=== PATIENT | male | born 1935 | race Caucasian/White ===

== ENCOUNTER 2016-09-05 19:53 | Inpatient (IN) | payer OTHER, MEDICARE ==
[~2016-09-05] VITALS: Ht 170.2 cm; Wt 78.0 kg
[2016-09-05 19:57] VITALS: O2SAT 100
[2016-09-05] MEDS ORDERED: GENTAMICIN 80 MG PREMIX 100 ML ONE (19:58)
[2016-09-05] MEDS ORDERED: ONDANSETRON HCL 4 MG/2 ML VIAL ONE (20:00)
[2016-09-05] MEDS ORDERED: MORPHINE SULFATE 8 MG/ML INJ ONE (20:00)
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
[2016-09-05 20:27] LABS: I-STAT POTASSIUM 3.8 MMOL/L (3.5-4.9)
[2016-09-05 20:30] LABS: AUTOMATED NEUTROPHIL # 14.8 TH/MM3 (1.8-7.7); BASOPHIL # 0.1 TH/MM3 (0-0.2); BASOPHIL % 0.3 % (0.0-2.0); HEMATOCRIT 32.8 % (39.0-51.0); LYMPH % 49.6 % (9.0-44.0); LYMPHOCYTE # 15.4 TH/MM3 (1.0-4.8); MEAN CELL VOLUME 87.6 FL (80.0-100.0); MEAN CORPUSCULAR HEMOGLOBIN 28.9 PG (27.0-34.0); MEAN CORPUSCULAR HGB CONC 32.9 % (32.0-36.0); MONO % 2.7 % (0.0-8.0); NEUT % 47.4 % (16.0-70.0); PLATELET COUNT 166 TH/MM3 (150-450); RED BLOOD COUNT 3.74 MIL/MM3 (4.50-5.90); RED CELL DISTRIBUTION WIDTH 14.7 % (11.6-17.2); WHITE BLOOD COUNT 31.1 TH/MM3 (4.0-11.0)
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
[2016-09-05 20:32] LABS: HEMO FLAGS AUTO DIFF
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
[2016-09-05] MEDS ORDERED: fentaNYL CITRATE 250 MCG/5 ML AMP ONE (20:49)
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
[2016-09-05] MEDS ORDERED: SODIUM CHLOR 0.9% 1000 ML INJ 1,000 ML IV ONE (21:00)
[2016-09-05] MEDS ORDERED: GENTAMICIN/SOD CHL 80 MG/100 ML IV ONE (21:00)
[2016-09-05] MEDS ORDERED: ceFAZolin 2 GM PREMIX 50 ML IV STA (21:11)
[2016-09-05] MEDS ORDERED: DIPHTH/TETANUS/ACEL PERTUSSIS (BOOSTER) 0.5 ML VIAL/PFS IM ONE (21:11)
[2016-09-05] MEDS ORDERED: NITROGLYCERIN-DEXTROSE INJ 250 ML IV SCH (21:15)
[2016-09-05] MEDS ORDERED: ASPIRIN 81 MG CHEW TAB CHEW ONE (21:15)
[2016-09-05] MEDS ORDERED: MORPHINE SULFATE 4 MG/ML INJ IV ONE (21:15)
[2016-09-05] MEDS ORDERED: ONDANSETRON HCL 4 MG/2 ML VIAL IV ONE (21:15)
[2016-09-05] MEDS ORDERED: IOHEXOL 350 MG/ML 10 ML VIAL (for RAD DIAG) IV ONE (21:20)
[2016-09-05 21:23] LABS: APTT (PATIENT) 26.7 SEC (24.3-30.1); INTERNATIONAL NORMALIZED RATIO 1.1 RATIO; PROTHROMBIN TIME - PATIENT 12.1 SEC (9.8-11.6)
[2016-09-05] MEDS ORDERED: HEPARIN SODIUM - IV 10,000 UNITS/10 ML VIAL IV ONE (21:30)
[2016-09-05] MEDS ORDERED: HEPARIN-D5W INJ 250 ML IV SCH (21:30)
[2016-09-05 21:36] LABS: BANDS 2 % (0-6); NEUTROPHIL # MANUAL DIFF 13.1 TH/MM3 (1.8-7.7); POLYS (SEG NEUTROPHILS) 40 % (16-70); WBC DIFF SAMPLE 100
[2016-09-05 21:37] LABS: PLATELET ESTIMATE SMEAR NORMAL (NORMAL); PLATELET MORPHOLOGY NORMAL (NORMAL); SCAN/DIFF FINAL DIFF MANUAL
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
[2016-09-05] MEDS ORDERED: MISCELLANEOUS NURSING INFORMATION XX SCH (21:45)
[2016-09-05] MEDS ORDERED: CHLORHEXIDINE GLUCONATE 2 % 1 PACK (2 CLOTHS) TOP PRN (21:45)
[2016-09-05] MEDS ORDERED: MAGNESIUM OXIDE 400 MG TAB PO PRN (21:45)
[2016-09-05] MEDS ORDERED: DEXTROSE 50% IN WATER 50 ML VIAL(D50) IV PUSH PRN (21:45)
[2016-09-05] MEDS ORDERED: POTASSIUM PHOSPHATE MONOBASIC 500 MG TAB PO/TUBE PRN (21:45)
[2016-09-05] MEDS ORDERED: POTASSIUM CL 40 MEQ/30 ML LIQ UDC PO/TUBE PRN ×2 (21:45)
[2016-09-05] MEDS ORDERED: MAGNESIUM SULFATE INJ 2 GM in SODIUM CHLORIDE 0.9% INJ 96 ML IV PRN (21:45)
[2016-09-05] MEDS ORDERED: RESP: ALBUTEROL 2.5 MG/IPRATROPIUM 0.5 MG NEB (PRN) INH (21:45)
[2016-09-05] MEDS ORDERED: POTASSIUM PHOSPHATE MONOBASIC 500 MG TAB PO PRN (21:45)
[2016-09-05] MEDS ORDERED: SODIUM PHOSPHATE INJ 30 MMOL in SODIUM CHLOR 0.9% 250 ML INJ 240 ML IV PRN (21:45)
[2016-09-05] MEDS ORDERED: POTASSIUM PHOSPHATE INJ 30 MMOL in SODIUM CHLOR 0.9% 250 ML INJ 250 ML IV PRN (21:45)
[2016-09-05] MEDS ORDERED: MAGNESIUM SULFATE INJ 4 GM in SODIUM CHLORIDE 0.9% INJ 92 ML IV PRN (21:45)
[2016-09-05] MEDS ORDERED: POTASSIUM CHLOR 20 MEQ PREMIX 100 ML IV PRN ×2 (21:45)
[2016-09-05] MEDS ORDERED: ONDANSETRON HCL 4 MG/2 ML VIAL IV PRN (21:45)
[2016-09-05] MEDS ORDERED: POTASSIUM CHLOR 40 MEQ PREMIX 100 ML IV PRN ×2 (21:45)
[2016-09-05] MEDS ORDERED: HEPARIN-NS/PF INJ 500 ML ONE (21:57)
[2016-09-05] MEDS ORDERED: MIDAZOLAM HCL 2 MG/2 ML VIAL ONE (21:59)
[2016-09-05] MEDS ORDERED: IOHEXOL 350 MG/ML 100 ML BTL (for Cath Lab) OTHER ONE (22:06)
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
[2016-09-05 22:32] LABS: BICARBONATE 26.3 MEQ/L (21.0-32.0); POTASSIUM 3.5 MEQ/L (3.5-5.1)
[2016-09-05] MEDS ORDERED: HEPARIN SODIUM - IV 10,000 UNITS/10 ML VIAL ONE ×2 (22:40→23:10)
[2016-09-05] MEDS ORDERED: CLOPIDOGREL 300 MG TAB ONE (22:57)
[2016-09-05 23:06] LABS: CALCIUM-PROTEIN CORRECTED 8.1 MG/DL (8.5-10.1)
[2016-09-05] MEDS ORDERED: MISC INFORMATION XX ONE (23:30)
[2016-09-05] MEDS ORDERED: SODIUM CHLORIDE 0.9% FLUSH 5 ML FLUSH IVF PRN (23:30)
[2016-09-05 23:35] VITALS: O2SAT 96
--- NOTE | 2016-09-05 23:43 | MA ---
cc: DELANOPENNY DATE: 09/05/2016 PROCEDURE PERFORMED Coronary angiography, bypass graft angiography including left internal mammary arteriography, balloon angioplasty and tandem stenting of the distal right coronary artery. Complex procedure required right femoral arterial access was subsequent Angio-Seal closure. DESCRIPTION OF PROCEDURE The patient is brought to the cardiac seed laboratory technician under emergency conditions with an inferior STEMI. Using 1% lidocaine for local anesthesia a 6.5 Setswana sheath was easily inserted into the right femoral artery. Left coronary angiography was then completed using a left 4.5 Maria De Jesus catheter, right coronary angiography was performed using a right 4 Maria De Jesus catheter. A multipurpose catheter was used to find a occluded vein graft to the right coronary artery. By his history there had to be at least one other graft which would be a left-sided graft. There were several potential stumps off the aorta but nothing clearly identifiable as a stump but I was confident that there no additional patent grafts. The internal mammary bypass was shot with an VENU catheter. I elected to go ahead and stent the right coronary artery. I avoided doing an LV gram or root shot because of his elevated creatinine and the situation with his hip fracture and wrist fracture. A right 4 Maria De Jesus guiding catheter was used to engage the right coronary artery. His ACT was a little low so heparin boluses were given. At the end of the case it was determined the IV was not functional so an additional 2500 units of heparin was given at the very end of the case but there were no thrombotic complications seen at any time. The right coronary artery was wired with a BMW wire. The 99% focal lesion was dilated with a 2-0 balloon with localized dissection and a long zone of disease. I then placed two overlapping stents, a 2.5 x 26 mm bare metal integrity stent deployed at 8 atmospheres and a second 2.5 x 22 mm stent. On the distal end of this, 22 atmospheres which completely covered the long zone of disease. The overlap of the stents was then dilated with the delivery balloon at 14 atmospheres and on the proximal end of the stent at 10 atmospheres. An outstanding angiographic result was achieved. The patient tolerated the procedure well. Total contrast load was 100 cc. Angiography of the right femoral artery was then obtained via the sheath followed by uncomplicated Angio-Seal closure. The patient tolerated procedure well, surprisingly with his left hip fracture and right wrist fracture. FINDINGS HEMODYNAMICS. 1. Aortic pressure is 125/50 with a mean of 79. 2. Coronary angiography. The left main coronary artery has distal 85% stenosis. It bifurcates into the LAD and circumflex vessels. The LAD is severely diseased. There is ostial 95% disease and 90% mid disease with competitive flow from the bypass graft. 3. The circumflex artery is somewhat diminutive in size. There is a small obtuse marginal branch with diffuse 90% disease. An AV groove circumflex with a small posterolateral has more than one 95% stenosis. 4. The right coronary artery is dominant. This vessel demonstrates mild diffuse disease with about 30% stenosis distally but then right at the bifurcation there is a 99% distal stenosis with a long zone of 50 to 70% disease, contiguous with this going into a long posterolateral branch. BYPASS GRAFTS The left internal mammary bypass graft is widely patent to the mid-LAD. It provides antegrade and retrograde flow. There is a small disease diagonal given off proximally. There is a stump at the vein graft to the right coronary artery. The remaining stump was not identified but there were no other patent grafts found. RESULTS OF INTERVENTION Following stenting of the distal right coronary artery and posterolateral branches 0% residual stenosis had been achieved with normal flow. CONCLUSION 1. Normal aortic pressure. 2. Severe three-vessel coronary artery disease. 3. Only one patent graft which is a left internal mammary graft to the LAD. 4. Critically diseased right coronary artery now successfully stented. This was the infarct-related vessel. RECOMMENDATIONS Heparin is now turned off. The groin has been closed with Angio-Seal. The patient needs to continue on 81 mg aspirin and 75 mg of clopidogrel. MD JONATHAN Rodriguez/YURY /11:19 PM /11:29 PM
[2016-09-06] VITALS (12 sets, daily range): BP systolic 96–121; BP diastolic 50–56; PULSE 61–82; RESP 13–23; TEMP 97.1–99.1; O2SAT 65–100
[2016-09-06] MEDS ORDERED: HYDROmorphone HCL PF 1 MG/ML VIAL IV PRN (00:15)
[2016-09-06] MEDS: HYDROmorphone HCL PF 1 MG/ML VIAL IV PRN ×3 (00:37→16:12)
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
[2016-09-06] MEDS: INSULIN NovoLIN REGULAR SUPPLEMENTAL SCALE SQ SCH ×3 (02:22→18:00)
[2016-09-06] MEDS: SODIUM CHLOR 0.9% 1000 ML INJ 1,000 ML IV SCH ×2 (02:22→09:22)
[2016-09-06] MEDS ORDERED: LACTATED RINGER'S 1000 ML INJ 500 ML IV SCH (03:15)
[2016-09-06] MEDS ORDERED: HEPARIN SODIUM - IV 10,000 UNITS/10 ML VIAL IV PRN ×2 (03:30)
[2016-09-06 03:32] LABS: AUTOMATED NEUTROPHIL # 9.9 TH/MM3 (1.8-7.7); BASOPHIL # 0.1 TH/MM3 (0-0.2); BASOPHIL % 0.5 % (0.0-2.0); HEMATOCRIT 22.8 % (39.0-51.0); LYMPH % 53.1 % (9.0-44.0); LYMPHOCYTE # 12.1 TH/MM3 (1.0-4.8); MEAN CELL VOLUME 88.6 FL (80.0-100.0); MEAN CORPUSCULAR HEMOGLOBIN 29.3 PG (27.0-34.0); MEAN CORPUSCULAR HGB CONC 33.1 % (32.0-36.0); MONO % 2.8 % (0.0-8.0); NEUT % 43.6 % (16.0-70.0); PLATELET COUNT 126 TH/MM3 (150-450); RED BLOOD COUNT 2.57 MIL/MM3 (4.50-5.90); RED CELL DISTRIBUTION WIDTH 14.6 % (11.6-17.2); WHITE BLOOD COUNT 22.7 TH/MM3 (4.0-11.0)
[2016-09-06 03:35] LABS: HEMO FLAGS AUTO DIFF
[2016-09-06 03:44] LABS: APTT (PATIENT) 38.4 SEC (24.3-30.1)
[2016-09-06 03:50] LABS: BICARBONATE 26.9 MEQ/L (21.0-32.0); POTASSIUM 3.7 MEQ/L (3.5-5.1)
[2016-09-06 04:18] LABS: BANDS 4 % (0-6); NEUTROPHIL # MANUAL DIFF 10.7 TH/MM3 (1.8-7.7); POLYS (SEG NEUTROPHILS) 43 % (16-70); SCAN/DIFF FINAL DIFF MANUAL; WBC DIFF SAMPLE 100
[2016-09-06 04:20] LABS: CKMB 16.9 NG/ML (0.5-3.6); PLATELET ESTIMATE SMEAR LOW (NORMAL); PLATELET MORPHOLOGY NORMAL (NORMAL); SMUDGE CELLS PRESENT PRESENT
[2016-09-06] MEDS ORDERED: ceFAZolin 2 GM PREMIX 50 ML ONE (08:13)
[2016-09-06] MEDS ORDERED: GENTAMICIN SULFATE 80 MG/2 ML VIAL ONE (08:14)
[2016-09-06] MEDS ORDERED: BUPIVACAINE/EPINEPHRINE 0.25% PF 30 ML VIAL ONE (08:14)
[2016-09-06] MEDS: DOCUSATE SODIUM 50 MG/SENNA 8.6 MG TAB PO SCH ×2 (09:00→23:44)
[2016-09-06] MEDS: ASPIRIN 81 MG CHEW TAB PO SCH (09:00)
[2016-09-06] MEDS: METOPROLOL TARTRATE 25 MG TAB PO SCH ×2 (09:00→18:36)
[2016-09-06] MEDS: CLOPIDOGREL 75 MG TAB PO SCH (09:00)
[2016-09-06] MEDS: SODIUM CHLORIDE 0.9% FLUSH 5 ML FLUSH IVF SCH ×3 (09:00→23:43)
[2016-09-06] MEDS: ATORVASTATIN 40 MG TAB PO SCH (09:00)
[2016-09-06] MEDS ORDERED: PANTOPRAZOLE SODIUM 40 MG VIAL IV SCH (09:00)
[2016-09-06] MEDS ORDERED: VASOPRESSIN INJ 20 UNITS/ML VIAL ONE (09:04)
[2016-09-06] MEDS ORDERED: GENTAMICIN SULFATE 80 MG/2 ML VIAL IV ONE (09:25)
[2016-09-06] MEDS ORDERED: BACITRACIN TOP OINT 15 GM TUBE ONE (10:54)
[2016-09-06] MEDS ORDERED: SUGAMMADEX SODIUM 200 MG/2 ML VIAL IV PUSH ONE ×2 (11:10)
--- NOTE | 2016-09-06 11:12 | PD.OP ---
cc: Mainor Reinoso MD Operative Report Date of Surgery: Sep 06, 2016 Preoperative Diagnosis: Open right distal radius fracture, closed left hip intertrochanteric fracture Postoperative Diagnosis: Procedure: Left hip reduction and intramedullary nail fixation Irrigation debridement of open right distal radius fracture Open reduction internal fixation of comminuted intra-articular right distal radius fracture Anesthesia: Gen. Surgeon: Mainor Reinoso Product Test Specialist(s): JOSE GUADALUPE Bergman PA-C The surgical procedure was assisted by my physician customer marketing assistant. My P.A. presence was necessary throughout this case for the manipulation and positioning of the surgical extremity. My P.A. was assisting me throughout the duration of this procedure. The skill set of a physician customer marketing assistant was medically necessary to complete this procedure. During the surgical case the senior technical architect was working at the back table and the physician customer marketing assistant was directly assisting me. Operation and Findings: Implants used: [11]mm Synthes TFNA intermediate 130 troch nail, Synthes distal radius plate Plan of activity: Weight-bear as tolerated left leg, nonweightbearing right wrist Patient was seen and evaluated preoperatively. The patient has significant hip pain from left intertrochanteric hip fracture and an open right distal radius fracture. The risk and benefits of surgery were discussed in depth with the patient to include bleeding infection nonunion malunion and need for hip replacement painful hardware as well as medical competitions including but not stroke heart attack and . Informed consent was obtained. Operative site was marked. Patient was brought to the operating room and placed on fracture table. IV sedation was administered by anesthesiologist. Timeout procedure was performed. Hip and leg were prepped with alcohol followed by DuraPrep and draped in the usual sterile fashion. IV antibiotics were given prior to incision. Procedure began with reduction of fracture. Traction was applied. The leg was manipulated to achieve reduction. Excellent reduction was achieved. Fluoroscopy was used to confirm reduction. A three inch incision was made proximal to the trochanter. Subcutaneous tissue was dissected bluntly. Guidepin was placed at the tip of the trochanter and advanced into the femoral canal. Fluoroscopy confirmed appropriate guidepin placement. A opening reamer was placed over the guidepin. The Synthes TFNA nail was attached to the insertion handle. Nail was now placed through the tip of the trochanter into the femoral canal. Fluoroscopy confirmed appropriate nail placement. A second incision was made over the lateral thigh. Cannulas were placed through the insertion handle down to the femur. Guidepin was now placed through the femoral nail into the center of the femoral head. Fluoroscopy confirmed appropriate guidepin placement. Screw length was measured. Cannulated drill was placed over the guidepin. Appropriate length lag screw was now placed. Traction was released and compression was applied. The set screw was now tightened in dynamic mode. Using the insertion handle as a guide a distal interlocking screw was drilled and placed. Final fluoroscopy revealed well aligned fracture with well-placed hardware. Incision was closed with 3-0 Vicryl and moon. Sterile dressings were applied. Patient was now repositioned. Right arm was prepped with alcohol followed by Hibiclens and draped in usual sterile fashion. A standard volar approach to the distal radius was utilized. The incision incorporated the 1 cm open laceration. A 3 inch incision was made over the FCR tendon. Tendon sheath was opened. Pronator quadratus was elevated up. The fracture site was now visualized. Next attention was turned to irrigation and debridement of fracture. There were several small bone fragments which were removed. Curettes were used to debride the edges of the bone. Soft tissue and bone were thoroughly irrigated with sterile saline. Overall the wound is very clean. Next attention was turned to fracture reduction. The fracture did have intra- articular extension. The fracture was comminuted and displaced completely. Traction was applied. The articular surface was reduced. Fracture fragments were manipulated to achieve excellent reduction. K wires were used to hold provisional fixation. Fluoroscopy confirmed appropriate alignment of fracture. A Synthes 2 column variable angle distal radius plate was selected. Plate was provisionally fixed to bone with K wires. 2.7 and 2.4 cortical screws were used to compress plate to bone. Fluoroscopy confirmed appropriate alignment of fracture with well-placed hardware. Multiple 2.4 locking screws were now placed distally. Screws were predrilled and measured for appropriate length. 2 additional screws were placed into the shaft. K wires were removed. Final fluoroscopy revealed excellent of fracture with well-placed hardware. The wound was thoroughly irrigated with sterile saline. Subcutaneous tissue was closed with 3-0 PDS and skin was closed with 3-0 nylon. Sterile dressings were applied with Xeroform, 4 x 4, soft roll, and a well padded volar splint. Patient was awakened and transferred to recovery room in stable condition Mainor Reinoso MD Sep 06, 2016 11:12
[2016-09-06] MEDS ORDERED: SODIUM CHLORIDE 0.9% FLUSH 5 ML FLUSH IVF PRN (11:15)
[2016-09-06] MEDS ORDERED: ONDANSETRON HCL 4 MG/2 ML VIAL IVP PRN (11:15)
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
[2016-09-06] MEDS ORDERED: fentaNYL CITRATE 250 MCG/5 ML AMP ONE (11:49)
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
[2016-09-06] MEDS ORDERED: PHENYLEPH/NS 1000 MCG/10 ML SYR IV ONE (12:00)
[2016-09-06] MEDS ORDERED: LACTATED RINGER'S 1000 ML INJ 1,000 ML IV ONE (12:00)
[2016-09-06] MEDS ORDERED: PROPOFOL 200 MG/20 ML AMP IV ONE (12:00)
[2016-09-06] MEDS ORDERED: ONDANSETRON HCL 4 MG/2 ML VIAL IV PUSH ONE (12:00)
[2016-09-06] MEDS ORDERED: PHENYLEPHRINE HCL 10 MG/ML VIAL IV ONE (12:00)
[2016-09-06] MEDS ORDERED: ERGOCALCIFEROL (VIT D2) 50,000 UNIT CAP PO ONE (13:00)
[2016-09-06 13:32] LABS: HEMATOCRIT 30.3 % (39.0-51.0); REVIEW FLAG FINAL
[2016-09-06] MEDS: ACETAMINOPHEN/HYDROcodone 325 MG/7.5 MG TAB PO PRN ×2 (13:49→17:32)
--- NOTE | 2016-09-06 14:49 | RADRPT ---
EXAM DATE/TIME: 09/06/2016 10:03 [facility] COMPARISON: No previous studies available for comparison. INDICATIONS : ORIF right wrist. MEDICAL HISTORY : None. SURGICAL HISTORY : None. ENCOUNTER: Subsequent ACUITY: 2 days PAIN SCORE: Non-responsive. LOCATION: Right wrist. FINDINGS: There are postsurgical changes with operative reduction and internal fixation of the previously seen fracture. The alignment is anatomic. CONCLUSION: Postsurgical changes as above. Christiano Mendez MD on September 06, 2016 at 14:47 Board Certified Radiologist. This report was verified electronically.
--- NOTE | 2016-09-06 14:49 | RADRPT ---
EXAM DATE/TIME: 09/06/2016 10:03 [facility] COMPARISON: No previous studies available for comparison. INDICATIONS : ORIF left hip troch nail. MEDICAL HISTORY : None. SURGICAL HISTORY : None. ENCOUNTER: Subsequent ACUITY: 2 days PAIN SCORE: Non-responsive. LOCATION: Left hip. FINDINGS: There are postsurgical changes with operative reduction and internal fixation of the previously seen fracture. The alignment is anatomic. CONCLUSION: Postsurgical changes as above. Christiano Mendez MD on September 06, 2016 at 14:47 Board Certified Radiologist. This report was verified electronically.
[2016-09-06 16:07] LABS: HEMATOCRIT 21.6 % (39.0-51.0)
[2016-09-06 16:09] LABS: REVIEW FLAG FINAL
[2016-09-06] MEDS ORDERED: SODIUM CHLOR 0.9% 250 ML INJ 250 ML IV ONE (16:45)
[2016-09-06] MEDS ORDERED: SODIUM CHLORID 0.9% 500 ML INJ 500 ML IV SCH (16:45)
[2016-09-06] MEDS ORDERED: METOPROLOL TARTRATE 5 MG/5 ML VIAL ONE (17:59)
[2016-09-06] MEDS ORDERED: METOPROLOL TARTRATE 5 MG/5 ML VIAL IV PUSH STA (18:03)
[2016-09-06 19:34] LABS: BICARBONATE 26.6 MEQ/L (21.0-32.0); POTASSIUM 3.5 MEQ/L (3.5-5.1)
[2016-09-06 20:01] LABS: CALCIUM-PROTEIN CORRECTED 7.7 MG/DL (8.5-10.1)
--- NOTE | 2016-09-06 21:02 | RADRPT ---
EXAM DATE/TIME: 09/06/2016 20:48 [facility] COMPARISON: No previous studies available for comparison. INDICATIONS : Altered mental status. RADIATION DOSE: 39.86 CTDIvol (mGy) MEDICAL HISTORY : Diabetes mellitus type 2. SURGICAL HISTORY : None. ENCOUNTER: Initial ACUITY: 1 day PAIN SCALE: Non-responsive LOCATION: cranial TECHNIQUE: Multiple contiguous axial images were obtained of the head. Using automated exposure control and adj ustment of the mA and/or kV according to patient size, radiation dose was kept as low as reasonably a chievable to obtain optimal diagnostic quality images. FINDINGS: Increased low attenuation fluid seen in the bilateral subdural spaces along both convexities, each si de measuring about 7 mm. These would be compatible with enlarging cystic hygromas. I don't clearly se e any acute blood products. There is no midline shift. No mass lesions seen. No evidence of an acute ischemic event. CONCLUSION: Enlarging bilateral cystic hygromas/nonacute subdural hematomas. No acute blood products seen. No mid line shift. Jeevan Cox MD on September 06, 2016 at 20:59 Board Certified Radiologist. This report was verified electronically.
--- NOTE | 2016-09-06 21:07 | EKG ---
Date Performed: 09/05/2016 Time Performed: 20:10:37 PTAGE: 89 years EKG: Sinus rhythm WITH FIRST DEGREE AV BLOCK MARKED RIGHT AXIS DEVIATION RIGHT BUNDLE BRANCH BLOCK MARKED ST ELEVATION , CONSIDER INFERIOR INJURY ACUTE HI INTERPRETATION BASED ON A DEFAULT AGE OF 38 YEARS NO PREVIOUS TRACING DOCTOR: Nolan Felix Interpretating Date/Time 09/06/2016 21:02:56
[2016-09-06 22:04] LABS: HEMATOCRIT 29.5 % (39.0-51.0); REVIEW FLAG FINAL
[2016-09-06] MEDS ORDERED: SODIUM CHLOR 0.9% 1000 ML INJ 1,000 ML IV ONE (23:15)
[2016-09-07] VITALS (13 sets, daily range): BP systolic 100–160; BP diastolic 52–89; PULSE 62–97; RESP 12–24; TEMP 97–99.4; O2SAT 96–98
[2016-09-07] MEDS: HYDROmorphone HCL PF 1 MG/ML VIAL IV PRN (04:03)
[2016-09-07 04:05] LABS: HEMATOCRIT 30.6 % (39.0-51.0); MEAN CELL VOLUME 85.3 FL (80.0-100.0); MEAN CORPUSCULAR HEMOGLOBIN 28.5 PG (27.0-34.0); MEAN CORPUSCULAR HGB CONC 33.4 % (32.0-36.0); PLATELET COUNT 105 TH/MM3 (150-450); RED BLOOD COUNT 3.59 MIL/MM3 (4.50-5.90); RED CELL DISTRIBUTION WIDTH 18.2 % (11.6-17.2); REVIEW FLAG FINAL
[2016-09-07] MEDS: CHLORHEXIDINE GLUCONATE 2 % 1 PACK (2 CLOTHS) TOP SCH ×3 (04:08→04:16)
[2016-09-07 04:32] LABS: POTASSIUM 3.6 MEQ/L (3.5-5.1)
[2016-09-07 04:49] LABS: CALCIUM-PROTEIN CORRECTED 7.4 MG/DL (8.5-10.1)
[2016-09-07] MEDS: MORPHINE SULFATE 4 MG/ML INJ IV PUSH PRN ×2 (05:06→18:44)
[2016-09-07] MEDS ORDERED: LORazepam 2 MG/ML VIAL IV SCH (05:15)
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
[2016-09-07] MEDS: INSULIN NovoLIN REGULAR SUPPLEMENTAL SCALE SQ SCH ×4 (06:00→17:08)
[2016-09-07] MEDS: CLOPIDOGREL 75 MG TAB PO SCH (08:02)
[2016-09-07] MEDS: ASPIRIN 81 MG CHEW TAB PO SCH (08:02)
[2016-09-07] MEDS: ATORVASTATIN 40 MG TAB PO SCH (08:02)
[2016-09-07] MEDS: METOPROLOL TARTRATE 25 MG TAB PO SCH ×2 (08:02→20:44)
[2016-09-07] MEDS: DOCUSATE SODIUM 50 MG/SENNA 8.6 MG TAB PO SCH ×2 (08:02→20:43)
[2016-09-07] MEDS: CHOLECALCIFEROL (VIT D3) 5000 UNIT CAP PO SCH (08:02)
[2016-09-07] MEDS ORDERED: PILL SPLITTER OTHER PRN (08:45)
--- NOTE | 2016-09-07 08:59 | PD.ORT.PN ---
Subjective Subjective Remarks Sedated with pain controlled, difficult to arouse Objective Vitals Vital Signs Date Time Temp Pulse Resp B/P Pulse Ox O2 Delivery O2 Flow Rate FiO2 09/07/16 06:00 68 09/07/16 04:00 93 09/07/16 04:00 98.9 93 22 160/89 97 09/07/16 02:00 68 09/07/16 00:00 66 09/07/16 00:00 99.1 66 13 100/54 97 09/06/16 22:00 68 09/06/16 21:15 98 Nasal Cannula 3.00 09/06/16 20:00 98.3 68 16 96/50 97 09/06/16 20:00 68 09/06/16 19:00 91 Nasal Cannula 3.00 09/06/16 18:00 76 09/06/16 16:00 94 Nasal Cannula 2.00 09/06/16 16:00 99.1 82 13 97/54 94 09/06/16 16:00 68 09/06/16 14:00 97.1 68 23 121/56 100 09/06/16 14:00 68 09/06/16 12:00 68 09/06/16 12:00 71 16 120/59 97 Nasal Cannula 4 09/06/16 11:50 68 16 116/55 99 Nasal Cannula 4 09/06/16 11:40 98.8 84 16 108/45 96 Nasal Cannula 4 I/O 09/06/16 09/06/16 09/06/16 09/07/16 09/07/16 09/07/16 07:00 15:00 23:00 07:00 15:00 23:00 Intake Total 1487 ml 1404 ml 909 ml 1699 ml Output Total 350 ml 600 ml 150 ml 250 ml Balance 1137 ml 804 ml 759 ml 1449 ml Intake IV Total 987 ml 404 ml 659 ml 1699 ml Packed Cells 500 ml 250 ml Other 1000 ml Output Urine Total 350 ml 300 ml 150 ml 250 ml Estimated Blood Loss 100 ml Other 200 ml Result Diagram: 09/07/168 09/07/16 0348 Imaging Last 24 hours Impressions Chest X-Ray 09/07/16 0600 Signed Impressions: Service Date/Time: Wednesday, September 07, 2016 04:20 - CONCLUSION: No acute cardiopulmonary disease. Areli Weaver MD Objective Remarks Right upper extremity no laxity of shoulder. Splint intact over distal radius. Clean dry and intact. Distally good capillary refills Left upper extremity: No laxity or obvious deformities. Capillary refills Right lower extremity: No laxity or obvious deformities. Good distal pulses and capillary refills Left lower extremity: Clean dry dressings intact over hip. Moderate swelling and ecchymosis. Dressings intact over knee. No obvious deformities or laxity of knee or ankle. Distally intact distal pulses and capillary refills Assessment & Plan Assessment and Plan Right open distal radius fracture POD 1 with irrigation debridement and ORIF Left intertrochanteric femur fracture status post intramedullary angelita fixation POD 1 Maintain splint right upper extremity was nonweightbearing to wrist Daily dressing changes left lower extremity beginning POD 2 with Xeroform and Primapore over incision sites and bacitracin over anterior knee Lovenox SCDs Incentive spirometry once patient is able Discharge planning to rehabilitation Follow-up with Dr. Reinoso or MARYELLEN in 2 weeks HARSHA ROSE PA-C Sep 07, 2016 08:59
[2016-09-07] MEDS: SODIUM CHLORIDE 0.9% FLUSH 5 ML FLUSH IVF SCH ×4 (09:00→20:44)
[2016-09-07] MEDS: FAMOTIDINE 20 MG TAB PO SCH ×2 (09:00→20:43)
--- NOTE | 2016-09-07 09:05 | EC ---
Study Study Date:09/06/2016 STUDY CONCLUSIONS SUMMARY - Left ventricle: The cavity size was normal. Wall thickness was increased in a pattern of moderate LVH. Systolic function was at the lower limits of normal. The estimated ejection fraction was in the range of 50% to 55%. Although no diagnostic regional wall motion abnormality was identified, this possibility cannot be completely excluded on the basis of this study. - Ventricular septum: The outflow septum had a sigmoid appearance. - Aortic valve: Mildly calcified annulus. Probably trileaflet. - Pulmonary arteries: PA peak pressure: 48mm Hg (S). If LV function is below 40, please consider prescribing an ACEI or ARB or document rationale for non-use. PROCEDURE DATA STUDY STATUS: Elective. Procedure: Transthoracic echocardiography. Image quality was good. Scanning was performed from the parasternal, apical, and subcostal acoustic windows. Study completion: The patient tolerated the procedure well. Transthoracic echocardiography. M-mode, complete 2D, complete spectral Doppler, and color Doppler. Patient status: Inpatient. CARDIAC ANATOMY LEFT VENTRICLE: The cavity size was normal. Wall thickness was increased in a pattern of moderate LVH. Systolic function was at the lower limits of normal. The estimated ejection fraction was in the range of 50% to 55%. Although no diagnostic regional wall motion abnormality was identified, this possibility cannot be completely excluded on the basis of this study. AORTIC VALVE: Mildly calcified annulus. Probably trileaflet. Doppler: There was no stenosis. No significant regurgitation. MITRAL VALVE: The valve appears to be grossly normal. Doppler: There was no evidence for stenosis. Trace regurgitation. LEFT ATRIUM: The atrium was normal in size. RIGHT VENTRICLE: The cavity size was normal. Systolic function was normal. VENTRICULAR SEPTUM: The outflow septum had a sigmoid appearance. PULMONIC VALVE: Not well visualized. Doppler: No significant regurgitation. TRICUSPID VALVE: The valve appears to be grossly normal. Doppler: There was no evidence for stenosis. Trace regurgitation. BASIC MEASUREMENTS ADULT NORMAL Left ventricle LV internal dimension, ED, chordal level, *34 mm 43-52 PLAX LV internal dimension, ES, chordal level, 27 mm 23-38 PLAX Fractional shortening, chordal level, PLAX *21 % >29 LV posterior wall thickness, ED 14.3 mm IVS/LVPW ratio, ED 1.28 <1.3 Ventricular septum Septal thickness, ED 18.3 mm Aortic valve Leaflet separation 19 mm 15-26 Right ventricle RV internal dimension, ED, PLAX 28 mm 19-38 BASIC MEASUREMENTS ADULT NORMAL Aortic valve Leaflet separation 19 mm 15-26 Aorta Root diameter, ED 30 mm 20-37 Left atrium Anterior-posterior dimension, ES 36 mm 19-40 LA/aortic root ratio 1.2 DOPPLER MEASUREMENTS ADULT NORMAL Main pulmonary artery Pressure, S *48 mm Hg =30 Tricuspid valve Regurgitant peak velocity 308 cm/s Peak RV-RA gradient, S 38 mm Hg Maximal regurgitant velocity 308 cm/s Systemic veins Estimated CVP 10 mm Hg Right ventricle RV pressure, S *48 mm Hg <30 LEGEND: Mean values are shown as u=mean value. Asterisk (*) mooney values outside specified normal range. Prepared and signed by Eze Stockton-[id number]
[2016-09-07] MEDS: CALCIUM CARBONATE 500 MG CHEWABLE TAB CHEW SCH ×2 (09:19→20:43)
[2016-09-07] MEDS: ACETAMINOPHEN/HYDROcodone 325 MG/7.5 MG TAB PO PRN ×2 (10:30→20:44)
[2016-09-07] MEDS: ENOXAPARIN SODIUM 30 MG/0.3 ML SYRINGE SQ SCH (11:34)
[2016-09-07] MEDS: FUROSEMIDE 20 MG TAB PO SCH (11:38)
[2016-09-07] MEDS ORDERED: MAGNESIUM SULFATE INJ 2 GM in SODIUM CHLORIDE 0.9% INJ 96 ML IV PRN (15:45)
[2016-09-07 16:45] LABS: BICARBONATE 25.3 MEQ/L (21.0-32.0); MAGNESIUM 1.4 MG/DL (1.5-2.5); POTASSIUM 3.6 MEQ/L (3.5-5.1)
[2016-09-07] MEDS: POTASSIUM CHLORIDE 20 MEQ CONTROLLED RELEASE TAB PO PRN (16:54)
[2016-09-07 16:58] LABS: CALCIUM-PROTEIN CORRECTED 7.8 MG/DL (8.5-10.1)
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
--- NOTE | 2016-09-07 18:13 | PD.CARD.PN ---
Subjective Subjective Remarks Brief chest pain last night. EKG shows ST's did not re-elevate Objective Medications Current Medications Medications (Trade) Dose Ordered Sig/Mary Alice Route Start Time Stop Time Status Last Admin (D50w (Vial) Inj) 25 ml UNSCH PRN IV PUSH 09/05/16 21:45 (NovoLIN R SUPPLEMENTAL SCALE) 1 Q6HR SQ 09/06/16 00:00 09/07/16 11:35 (Zofran Inj) 4 mg Q6H PRN IV 09/05/16 21:45 09/06/16 17:39 (Sanam-Colace) 2 tab BID PO 09/06/16 09:00 09/07/16 08:02 Miscellaneous Information 1 Q361D XX 09/05/16 21:45 (Chlorhexidine 2% Cloth) 3 pack Taper DAILY@04 TOP 09/06/16 04:00 09/02/17 03:59 09/07/16 04:16 (Chlorhexidine 2% Cloth) 3 pack UNSCH PRN TOP 09/05/16 21:45 (NS Flush) 2 ml UNSCH PRN IVF 09/05/16 23:30 (NS Flush) 2 ml BID IVF 09/06/16 09:00 09/07/16 09:00 (Aspirin Chew) 81 mg DAILY PO 09/06/16 09:00 09/07/16 08:02 (Plavix) 75 mg DAILY PO 09/06/16 09:00 09/07/16 08:02 (Lipitor) 40 mg DAILY PO 09/06/16 09:00 09/07/16 08:02 (NS Flush) 2 ml UNSCH PRN IVF 09/06/16 11:15 (NS Flush) 2 ml BID IVF 09/06/16 21:00 09/07/16 09:00 (Lovenox Inj) 30 mg Q24H SQ 09/07/16 11:30 09/07/16 11:34 (Zofran Inj) 4 mg Q4H PRN IVP 09/06/16 11:15 ([place] 7.5-325 Mg) 1 tab Q3H PRN PO 09/06/16 11:15 09/07/16 10:30 (Morphine Inj) 3 mg Q3H PRN IV PUSH 09/06/16 11:15 09/07/16 05:06 (Vitamin D3) 5,000 units DAILY PO 09/07/16 09:00 09/07/16 08:02 (Pepcid) 10 mg BID PO 09/07/16 09:00 09/07/16 09:00 (Tums Chew) 500 mg Q12HR CHEW 09/07/16 09:00 09/07/16 09:19 (Pill Splitter) 1 ea UNSCH PRN OTHER 09/07/16 08:45 (Lasix) 20 mg DAILY PO 09/07/16 12:00 09/07/16 11:38 Metoprolol Tartrate 25 mg 25 mg BID PO 09/07/16 21:00 (Magnesium Sulfate Inj/NS Inj) 100 ml @ 50 mls/hr UNSCH PRN IV 09/07/16 15:45 09/07/16 17:07 (KCl) 40 meq UNSCH PRN PO 09/07/16 15:45 09/07/16 16:54 Vital Signs / I&O Vital Signs Date Time Temp Pulse Resp B/P Pulse Ox O2 Delivery O2 Flow Rate FiO2 09/07/16 18:00 77 09/07/16 16:00 97.0 62 12 106/52 96 09/07/16 16:00 62 09/07/16 14:00 90 09/07/16 12:00 98 Nasal Cannula 2.00 09/07/16 12:00 99.4 72 24 107/53 98 09/07/16 12:00 72 09/07/16 10:00 69 09/07/16 08:00 66 09/07/16 08:00 98.4 66 18 113/53 98 09/07/16 07:00 97 Nasal Cannula 3.00 09/07/16 06:00 68 09/07/16 04:00 93 09/07/16 04:00 98.9 93 22 160/89 97 09/07/16 02:00 68 09/07/16 00:00 66 09/07/16 00:00 99.1 66 13 100/54 97 09/06/16 22:00 68 09/06/16 21:15 98 Nasal Cannula 3.00 09/06/16 20:00 98.3 68 16 96/50 97 09/06/16 20:00 68 09/06/16 19:00 91 Nasal Cannula 3.00 I/O 09/06/16 09/06/16 09/06/16 09/07/16 09/07/16 09/07/16 07:00 15:00 23:00 07:00 15:00 23:00 Intake Total 1487 ml 1404 ml 909 ml 1699 ml 1401 ml Output Total 350 ml 600 ml 150 ml 250 ml 200 ml Balance 1137 ml 804 ml 759 ml 1449 ml 1201 ml Intake Oral 525 ml IV Total 987 ml 404 ml 659 ml 1699 ml 551 ml Packed Cells 500 ml 250 ml 325 ml Other 1000 ml Output Urine Total 350 ml 300 ml 150 ml 250 ml 200 ml Estimated Blood Loss 100 ml Other 200 ml Physical Exam Alert Chest clear anteriorly CV S1S2 RRR Abd soft Ext Right groin no hematoma. Pulses OK Laboratory Laboratory Tests Test 09/06/16 09/06/16 09/07/16 09/07/16 18:57 21:50 03:48 15:49 Sodium Level 141 MEQ/L 142 MEQ/L 143 MEQ/L Potassium Level 3.5 MEQ/L 3.6 MEQ/L 3.6 MEQ/L Chloride Level 106 MEQ/L 107 MEQ/L 109 MEQ/L Carbon Dioxide Level 26.6 MEQ/L 24.0 MEQ/L 25.3 MEQ/L Anion Gap 8 MEQ/L 11 MEQ/L 9 MEQ/L Blood Urea Nitrogen 30 MG/DL 32 MG/DL 38 MG/DL Creatinine 2.05 MG/DL 2.18 MG/DL 2.15 MG/DL Estimat Glomerular Filtration 31 ML/MIN 29 ML/MIN 30 ML/MIN Rate Random Glucose 135 MG/DL 130 MG/DL 106 MG/DL Calcium Level 6.8 MG/DL 6.5 MG/DL 6.7 MG/DL Protein Corrected Calcium 7.7 MG/DL 7.4 MG/DL 7.8 MG/DL Troponin I 10.60 NG/ML 9.55 NG/ML Total Protein 5.3 GM/DL 5.3 GM/DL 4.9 GM/DL Hemoglobin 9.9 GM/DL 10.2 GM/DL Hematocrit 29.5 % 30.6 % White Blood Count 28.0 TH/MM3 Red Blood Count 3.59 MIL/MM3 Mean Corpuscular Volume 85.3 FL Mean Corpuscular Hemoglobin 28.5 PG Mean Corpuscular Hemoglobin 33.4 % Concent Red Cell Distribution Width 18.2 % Platelet Count 105 TH/MM3 Mean Platelet Volume 9.6 FL Magnesium Level 1.4 MG/DL Assessment and Plan Problem List: (1) STEMI (ST elevation myocardial infarction) Assessment and Plan: S/p RCA stents x2 (2) CAD (coronary artery disease) Assessment and Plan: Intact LORD to LAD. RCA stented. LCX severely disease/ no patent graft. Increase metoprolol. Problem Qualifiers (1) STEMI (ST elevation myocardial infarction): Qualified Code: I21.3 - ST elevation myocardial infarction (STEMI), unspecified artery Sukhjinder Salazar MD Sep 07, 2016 18:13
--- NOTE | 2016-09-07 22:40 | EKG ---
Date Performed: 09/07/2016 Time Performed: 04:54:22 PTAGE: 81 years EKG: Sinus rhythm with PVC(s) with PAC(s). Rightward axis Right bundle branch block Inferior/lateral ST-T changes may be due to myocardial ischemia Generalized low QRS voltages Abnormal ECG NO PREVIOUS TRACING DOCTOR: Tonya Deluca Interpretating Date/Time 09/07/2016 22:39:17
--- NOTE | 2016-09-07 22:50 | EKG ---
Date Performed: 09/06/2016 Time Performed: 18:15:54 PTAGE: 81 years EKG: Sinus rhythm Right bundle branch block Possible inferior infarct - age undetermined Lateral ST-T changes may be d ue to myocardial ischemia Abnormal ECG NO PREVIOUS TRACING DOCTOR: Tonya Deluca Interpretating Date/Time 09/07/2016 22:45:40
[2016-09-08] VITALS (16 sets, daily range): BP systolic 106–196; BP diastolic 55–92; PULSE 56–101; RESP 13–28; TEMP 97.8–98.9; O2SAT 92–98
[2016-09-08] MEDS: CHLORHEXIDINE GLUCONATE 2 % 1 PACK (2 CLOTHS) TOP SCH ×2 (05:19→22:05)
[2016-09-08] MEDS: INSULIN NovoLIN REGULAR SUPPLEMENTAL SCALE SQ SCH ×5 (06:00→22:24)
[2016-09-08 06:35] LABS: BICARBONATE 24.1 MEQ/L (21.0-32.0)
[2016-09-08 06:53] LABS: HEMATOCRIT 27.4 % (39.0-51.0); MEAN CELL VOLUME 86.2 FL (80.0-100.0); MEAN CORPUSCULAR HEMOGLOBIN 28.4 PG (27.0-34.0); MEAN CORPUSCULAR HGB CONC 32.9 % (32.0-36.0); PLATELET COUNT 110 TH/MM3 (150-450); RED BLOOD COUNT 3.18 MIL/MM3 (4.50-5.90); REVIEW FLAG FINAL; WHITE BLOOD COUNT 26.1 TH/MM3 (4.0-11.0)
[2016-09-08 07:04] LABS: CALCIUM-PROTEIN CORRECTED 8.1 MG/DL (8.5-10.1)
--- NOTE | 2016-09-08 08:20 | PD.ORT.PN ---
Subjective Subjective Remarks POD 2 s/p ORIF right wrist and left hip troch nail doing well pain controlled. has not been out of bed yet Objective Vitals Vital Signs Date Time Temp Pulse Resp B/P Pulse Ox O2 Delivery O2 Flow Rate FiO2 09/08/16 06:00 91 09/08/16 04:00 61 09/08/16 04:00 98.7 81 14 118/56 98 09/08/16 02:00 60 09/08/16 00:00 56 09/08/16 00:00 98.6 56 13 106/55 96 09/07/16 22:00 97 09/07/16 20:00 77 09/07/16 20:00 98.7 76 19 118/82 96 09/07/16 19:50 97 Nasal Cannula 2.00 09/07/16 19:00 95 Nasal Cannula 3.00 09/07/16 18:00 77 09/07/16 16:00 97.0 62 12 106/52 96 09/07/16 16:00 62 09/07/16 14:00 90 09/07/16 12:00 98 Nasal Cannula 2.00 09/07/16 12:00 99.4 72 24 107/53 98 09/07/16 12:00 72 09/07/16 10:00 69 I/O 09/07/16 09/07/16 09/07/16 09/08/16 09/08/16 09/08/16 07:00 15:00 23:00 07:00 15:00 23:00 Intake Total 1699 ml 1401 ml 125 ml 319 ml Output Total 250 ml 200 ml 300 ml 220 ml Balance 1449 ml 1201 ml -175 ml 99 ml Intake Oral 525 ml 240 ml IV Total 1699 ml 551 ml 125 ml 79 ml Packed Cells 325 ml Output Urine Total 250 ml 200 ml 300 ml 220 ml Result Diagram: 09/08/16 0514 09/08/16 0514 Imaging Last 24 hours Impressions Chest X-Ray 09/07/16 0600 Signed Impressions: Service Date/Time: Wednesday, September 07, 2016 04:20 - CONCLUSION: No acute cardiopulmonary disease. Areli Weaver MD Objective Remarks Right upper extremity no laxity of shoulder. Splint intact over distal radius. Clean dry and intact. Distally good capillary refills Left upper extremity: No laxity or obvious deformities. Capillary refills Right lower extremity: No laxity or obvious deformities. Good distal pulses and capillary refills Left lower extremity: Clean dry dressings intact over hip. Moderate swelling and ecchymosis. Dressings intact over knee. No obvious deformities or laxity of knee or ankle. Distally intact distal pulses and capillary refills Assessment & Plan Assessment and Plan Right open distal radius fracture POD 2 with irrigation debridement and ORIF Left intertrochanteric femur fracture status post intramedullary angelita fixation POD 2 Maintain splint right upper extremity was nonweightbearing to wrist Daily dressing changes left lower extremity beginning POD 2 with Xeroform and Primapore over incision sites and bacitracin over anterior knee Lovenox SCDs Incentive spirometry once patient is able Discharge planning to rehabilitation Follow-up with Dr. Reinoso or [place] in 2 weeks Damian Alonso Sep 08, 2016 08:20
[2016-09-08] MEDS ORDERED: MAGNESIUM HYDROXIDE SUSP 30 ML CUP PO PRN (08:30)
[2016-09-08] MEDS ORDERED: LACTULOSE SYRUP 20 GM/30 ML CUP PO ONE (08:30)
[2016-09-08] MEDS: FAMOTIDINE 20 MG TAB PO SCH ×2 (08:37→19:55)
[2016-09-08] MEDS: ASPIRIN 81 MG CHEW TAB PO SCH (08:37)
[2016-09-08] MEDS: FUROSEMIDE 20 MG TAB PO SCH (08:37)
[2016-09-08] MEDS: CLOPIDOGREL 75 MG TAB PO SCH (08:37)
[2016-09-08] MEDS: METOPROLOL TARTRATE 25 MG TAB PO SCH ×2 (08:38→19:55)
[2016-09-08] MEDS: DOCUSATE SODIUM 50 MG/SENNA 8.6 MG TAB PO SCH ×2 (08:38→19:56)
[2016-09-08] MEDS: CHOLECALCIFEROL (VIT D3) 5000 UNIT CAP PO SCH (08:38)
[2016-09-08] MEDS: CALCIUM CARBONATE 500 MG CHEWABLE TAB CHEW SCH ×2 (08:38→19:55)
[2016-09-08] MEDS: SODIUM CHLORIDE 0.9% FLUSH 5 ML FLUSH IVF SCH ×4 (08:38→19:57)
[2016-09-08] MEDS: ATORVASTATIN 40 MG TAB PO SCH (08:38)
[2016-09-08 08:49] LABS: MAGNESIUM 2.1 MG/DL (1.5-2.5)
[2016-09-08] MEDS ORDERED: hydrALAZINE HCL 20 MG/ML VIAL IV PUSH PRN (09:15)
[2016-09-08] MEDS: ACETAMINOPHEN/HYDROcodone 325 MG/7.5 MG TAB PO PRN ×2 (09:27→19:55)
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
[2016-09-08] MEDS: ENOXAPARIN SODIUM 30 MG/0.3 ML SYRINGE SQ SCH (11:33)
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
[2016-09-09] VITALS (10 sets, daily range): BP systolic 120–172; BP diastolic 64–86; PULSE 72–111; RESP 16–20; TEMP 97.6–98.5; O2SAT 90–95
[2016-09-09] MEDS: ACETAMINOPHEN/HYDROcodone 325 MG/7.5 MG TAB PO PRN ×2 (04:18→10:23)
[2016-09-09] MEDS: INSULIN NovoLIN REGULAR SUPPLEMENTAL SCALE SQ SCH ×4 (05:19→23:35)
[2016-09-09 06:59] LABS: HEMATOCRIT 27.9 % (39.0-51.0); MEAN CELL VOLUME 85.1 FL (80.0-100.0); MEAN CORPUSCULAR HEMOGLOBIN 28.3 PG (27.0-34.0); MEAN CORPUSCULAR HGB CONC 33.3 % (32.0-36.0); PLATELET COUNT 150 TH/MM3 (150-450); RED BLOOD COUNT 3.27 MIL/MM3 (4.50-5.90); RED CELL DISTRIBUTION WIDTH 18.2 % (11.6-17.2); WHITE BLOOD COUNT 32.6 TH/MM3 (4.0-11.0)
[2016-09-09 07:02] LABS: REVIEW FLAG FINAL
[2016-09-09 07:16] LABS: BICARBONATE 21.5 MEQ/L (21.0-32.0); POTASSIUM 3.5 MEQ/L (3.5-5.1)
--- NOTE | 2016-09-09 07:50 | PD.ORT.PN ---
Subjective Subjective Remarks POD 3 s/p ORIF right wrist and left hip troch nail doing well pain controlled. has not been out of bed yet. nurses have been under impression that he is not able to get out of bed despite PT order for WBAT. patient confused. has been picking at his splint and dressings. Objective Vitals Vital Signs Date Time Temp Pulse Resp B/P Pulse Ox O2 Delivery O2 Flow Rate FiO2 09/09/16 04:00 91 09/09/16 03:00 87 09/09/16 03:00 98.2 94 16 157/80 90 09/09/16 02:00 87 09/08/16 23:00 98.9 89 16 137/68 92 09/08/16 19:00 94 Nasal Cannula 2.00 09/08/16 19:00 97.9 101 16 196/92 94 09/08/16 18:00 92 09/08/16 17:45 94 21 09/08/16 17:00 94 09/08/16 16:00 90 09/08/16 16:00 91 09/08/16 15:15 97.8 88 16 147/76 95 09/08/16 14:00 82 09/08/16 12:00 85 09/08/16 12:00 98.4 84 24 139/76 94 09/08/16 10:00 94 09/08/16 08:55 97 Nasal Cannula 3.00 09/08/16 08:00 98.6 90 28 171/77 98 09/08/16 08:00 90 I/O 09/08/16 09/08/16 09/08/16 09/09/16 09/09/16 09/09/16 07:00 15:00 23:00 07:00 15:00 23:00 Intake Total 319 ml 800 ml Output Total 220 ml 250 ml 500 ml Balance 99 ml 550 ml -500 ml Intake Oral 240 ml 600 ml IV Total 79 ml 200 ml Output Urine Total 220 ml 250 ml 500 ml # Voids 1 Result Diagram: 09/09/16 0602 09/09/16 0602 Imaging Last 24 hours Impressions Chest X-Ray 09/07/16 0600 Signed Impressions: Service Date/Time: Wednesday, September 07, 2016 04:20 - CONCLUSION: No acute cardiopulmonary disease. Areli Weaver MD Objective Remarks RUE: +short arm splint. falling apart. NVI LLE: no dressings on hip. +bruising. NVI Assessment & Plan Assessment and Plan 1) Right open distal radius fracture with irrigation debridement and ORIF - POD 3 2) Left intertrochanteric femur fracture status post intramedullary angelita fixation - POD 3 Maintain splint right upper extremity was nonweightbearing to wrist WBAT to left hip PT for platform walker training. ok to use platform walker Daily dressing changes left lower extremity beginning POD 2 with Xeroform and Primapore over incision sites and bacitracin over anterior knee Lovenox SCDs Incentive spirometry once patient is able Discharge planning to rehabilitation Follow-up with Dr. Reinoso or [place] in 2 weeks Damian Alonso Sep 09, 2016 07:50
[2016-09-09] MEDS: DOCUSATE SODIUM 50 MG/SENNA 8.6 MG TAB PO SCH ×2 (08:07→19:40)
[2016-09-09] MEDS: CLOPIDOGREL 75 MG TAB PO SCH (08:08)
[2016-09-09] MEDS: ASPIRIN 81 MG CHEW TAB PO SCH (08:08)
[2016-09-09] MEDS: FUROSEMIDE 20 MG TAB PO SCH (08:08)
[2016-09-09] MEDS: ATORVASTATIN 40 MG TAB PO SCH (08:08)
[2016-09-09] MEDS: CALCIUM CARBONATE 500 MG CHEWABLE TAB CHEW SCH ×2 (08:08→09:00)
[2016-09-09] MEDS: CHOLECALCIFEROL (VIT D3) 5000 UNIT CAP PO SCH (08:08)
[2016-09-09] MEDS: FAMOTIDINE 20 MG TAB PO SCH ×2 (08:08→19:40)
[2016-09-09] MEDS ORDERED: BISACODYL EC 5 MG TABEC PO ONE (08:15)
[2016-09-09] MEDS ORDERED: BISACODYL 10 MG SUPP RECTAL ONE (08:15)
[2016-09-09] MEDS: METOPROLOL TARTRATE 25 MG TAB PO SCH ×2 (08:17→19:40)
[2016-09-09] MEDS: SODIUM CHLORIDE 0.9% FLUSH 5 ML FLUSH IVF SCH ×4 (09:00→19:43)
[2016-09-09] MEDS: ENOXAPARIN SODIUM 30 MG/0.3 ML SYRINGE SQ SCH (10:22)
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
[2016-09-09] MEDS ORDERED: METO25TA3 PO (12:32)
[2016-09-09] MEDS ORDERED: CHOL5000 PO (12:32)
[2016-09-09] MEDS ORDERED: LIPI40TA PO (12:32)
[2016-09-09] MEDS ORDERED: CALC500C16 CHEW (12:32)
[2016-09-09] MEDS ORDERED: Aspirin Chew PO (12:32)
[2016-09-09] MEDS ORDERED: FURO20TA PO (12:32)
[2016-09-09] MEDS ORDERED: MILKSUS PO (12:32)
[2016-09-09] MEDS ORDERED: PLAV75TA29 PO (12:32)
[2016-09-09] MEDS ORDERED: ENOX30P SQ (12:32)
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
[2016-09-09] MEDS ORDERED: NORC5TAB PO (12:41)
[2016-09-09] MEDS: ACETAMINOPHEN 325 MG TAB PO PRN (19:40)
[2016-09-09] MEDS: CHLORHEXIDINE GLUCONATE 2 % 1 PACK (2 CLOTHS) TOP SCH (23:36)
[2016-09-10] VITALS: BP 162/78; PULSE 82; RESP 20; TEMP 98.2; O2SAT 96
[2016-09-10] MEDS: ACETAMINOPHEN 325 MG TAB PO PRN ×3 (04:26→22:45)
[2016-09-10] MEDS: INSULIN NovoLIN REGULAR SUPPLEMENTAL SCALE SQ SCH ×4 (04:31→23:59)
[2016-09-10 05:53] LABS: AUTOMATED NEUTROPHIL # 7.8 TH/MM3 (1.8-7.7); BASOPHIL # 0.1 TH/MM3 (0-0.2); BASOPHIL % 0.2 % (0.0-2.0); EOSINOPHIL # 0.1 TH/MM3 (0-0.4); EOSINOPHIL % 0.4 % (0.0-4.0); HEMATOCRIT 26.4 % (39.0-51.0); LYMPH % 65.3 % (9.0-44.0); LYMPHOCYTE # 16.5 TH/MM3 (1.0-4.8); MEAN CELL VOLUME 85.2 FL (80.0-100.0); MEAN CORPUSCULAR HEMOGLOBIN 28.6 PG (27.0-34.0); MEAN CORPUSCULAR HGB CONC 33.6 % (32.0-36.0); MONO % 3.4 % (0.0-8.0); NEUT % 30.7 % (16.0-70.0); PLATELET COUNT 157 TH/MM3 (150-450); RED CELL DISTRIBUTION WIDTH 17.9 % (11.6-17.2); WHITE BLOOD COUNT 25.2 TH/MM3 (4.0-11.0)
[2016-09-10 06:19] LABS: HEMO FLAGS AUTO DIFF
[2016-09-10 06:21] LABS: BICARBONATE 24.7 MEQ/L (21.0-32.0); INDIRECT BILIRUBIN 0.6 MG/DL (0.0-0.8); POTASSIUM 3.6 MEQ/L (3.5-5.1); TOTAL BILIRUBIN ADULT 0.9 MG/DL (0.2-1.0)
[2016-09-10 08:00] VITALS: BP 168/75; PULSE 68; RESP 18; TEMP 96.9; O2SAT 94
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
[2016-09-10] MEDS: SODIUM CHLORIDE 0.9% FLUSH 5 ML FLUSH IVF SCH ×4 (09:00→22:41)
[2016-09-10] MEDS: CALCIUM CARBONATE 500 MG CHEWABLE TAB CHEW SCH (09:06)
[2016-09-10] MEDS: DOCUSATE SODIUM 50 MG/SENNA 8.6 MG TAB PO SCH ×2 (09:06→22:43)
[2016-09-10] MEDS: ASPIRIN 81 MG CHEW TAB PO SCH (09:06)
[2016-09-10] MEDS: FUROSEMIDE 20 MG TAB PO SCH (09:06)
[2016-09-10] MEDS: METOPROLOL TARTRATE 25 MG TAB PO SCH ×2 (09:06→22:42)
[2016-09-10] MEDS: CLOPIDOGREL 75 MG TAB PO SCH (09:07)
[2016-09-10] MEDS: FAMOTIDINE 20 MG TAB PO SCH ×2 (09:07→22:43)
[2016-09-10] MEDS: ATORVASTATIN 40 MG TAB PO SCH (09:07)
[2016-09-10 09:26] LABS: BANDS 1 % (0-6); MYELOCYTES 1 % (0-0); NEUTROPHIL # MANUAL DIFF 3.8 TH/MM3 (1.8-7.7); POLYS (SEG NEUTROPHILS) 13 % (16-70); WBC DIFF SAMPLE 100
[2016-09-10 09:27] LABS: SCAN/DIFF FINAL DIFF MANUAL; SMUDGE CELLS PRESENT PRESENT
[2016-09-10 09:28] LABS: PLATELET ESTIMATE SMEAR NORMAL (NORMAL); PLATELET MORPHOLOGY NORMAL (NORMAL)
[2016-09-10] MEDS: CHOLECALCIFEROL (VIT D3) 5000 UNIT CAP PO SCH (10:15)
[2016-09-10] MEDS: ENOXAPARIN SODIUM 30 MG/0.3 ML SYRINGE SQ SCH (11:47)
[2016-09-10 12:00] VITALS: BP 189/85; PULSE 85; RESP 17; TEMP 95.3; O2SAT 93
[2016-09-10 12:26] LABS: HDL CHOLESTEROL 26.8 MG/DL (40.0-60.0)
[2016-09-10] MEDS ORDERED: HYDR-3580 PO (13:27)
[2016-09-10 16:00] VITALS: BP 141/67; PULSE 87; RESP 18; TEMP 98.7; O2SAT 96
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
[2016-09-10 20:00] VITALS: BP 176/80; PULSE 73; RESP 17; TEMP 97.5; O2SAT 95
[2016-09-11] VITALS: BP 146/77; PULSE 69; RESP 17; TEMP 96.8; O2SAT 95
[2016-09-11] MEDS: CHLORHEXIDINE GLUCONATE 2 % 1 PACK (2 CLOTHS) TOP SCH
[2016-09-11] MEDS: INSULIN NovoLIN REGULAR SUPPLEMENTAL SCALE SQ SCH ×3 (04:56→18:00)
[2016-09-11 05:31] LABS: HEMATOCRIT 28.5 % (39.0-51.0); MEAN CELL VOLUME 85.4 FL (80.0-100.0); MEAN CORPUSCULAR HEMOGLOBIN 28.3 PG (27.0-34.0); MEAN CORPUSCULAR HGB CONC 33.1 % (32.0-36.0); PLATELET COUNT 197 TH/MM3 (150-450); RED BLOOD COUNT 3.34 MIL/MM3 (4.50-5.90); RED CELL DISTRIBUTION WIDTH 17.7 % (11.6-17.2); REVIEW FLAG FINAL; WHITE BLOOD COUNT 26.8 TH/MM3 (4.0-11.0)
[2016-09-11 05:51] LABS: BICARBONATE 27.2 MEQ/L (21.0-32.0); POTASSIUM 3.2 MEQ/L (3.5-5.1)
[2016-09-11 08:00] VITALS: BP 187/79; PULSE 71; RESP 20; TEMP 96.8; O2SAT 95
[2016-09-11] MEDS: SODIUM CHLORIDE 0.9% FLUSH 5 ML FLUSH IVF SCH ×4 (09:00→22:07)
[2016-09-11] MEDS: ATORVASTATIN 40 MG TAB PO SCH (09:19)
[2016-09-11] MEDS: CHOLECALCIFEROL (VIT D3) 5000 UNIT CAP PO SCH (09:19)
[2016-09-11] MEDS: CALCIUM CARBONATE 500 MG CHEWABLE TAB CHEW SCH (09:19)
[2016-09-11] MEDS: CLOPIDOGREL 75 MG TAB PO SCH (09:20)
[2016-09-11] MEDS: ASPIRIN 81 MG CHEW TAB PO SCH (09:20)
[2016-09-11] MEDS: FAMOTIDINE 20 MG TAB PO SCH ×2 (09:20→22:05)
[2016-09-11] MEDS: DOCUSATE SODIUM 50 MG/SENNA 8.6 MG TAB PO SCH ×2 (09:21→21:00)
[2016-09-11] MEDS: FUROSEMIDE 20 MG TAB PO SCH (09:21)
[2016-09-11] MEDS: METOPROLOL TARTRATE 25 MG TAB PO SCH ×2 (09:28→22:05)
[2016-09-11] MEDS: POTASSIUM CHLORIDE 20 MEQ CONTROLLED RELEASE TAB PO PRN (09:33)
[2016-09-11] MEDS ORDERED: POTASSIUM CHLORIDE 10 MEQ CONTROLLED RELEASE TAB PO ONE ×2 (09:45→10:30)
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
--- NOTE | 2016-09-11 11:15 | PD.ORT.PN ---
Subjective Subjective Remarks Pain controlled no new complaints. Pulled IV out last night Objective Vitals Vital Signs Date Time Temp Pulse Resp B/P Pulse Ox O2 Delivery O2 Flow Rate FiO2 09/11/16 08:00 96.8 71 20 187/79 95 09/11/16 00:00 96.8 69 17 146/77 95 09/10/16 20:00 97.5 73 17 176/80 95 09/10/16 16:00 98.7 87 18 141/67 96 09/10/16 12:00 95.3 85 17 189/85 93 I/O 09/10/16 09/10/16 09/10/16 09/11/16 09/11/16 09/11/16 07:00 15:00 23:00 07:00 15:00 23:00 Intake Total 240 ml 300 ml 480 ml 240 ml Output Total 435 ml 200 ml 200 ml Balance 240 ml -135 ml 280 ml 40 ml Intake Oral 240 ml 300 ml 480 ml 240 ml IV Total 0 ml Output Urine Total 435 ml 200 ml 200 ml # Voids 3 # Bowel Movements 1 1 1 Result Diagram: 09/11/16 0442 09/11/16 0442 Imaging Last 24 hours Impressions Chest X-Ray 09/07/16 0600 Signed Impressions: Service Date/Time: Wednesday, September 07, 2016 04:20 - CONCLUSION: No acute cardiopulmonary disease. Areli Weaver MD Objective Remarks RUE: +short arm splint. NVI LLE: Dressing clean dry and intact. +bruising. NVI Assessment & Plan Assessment and Plan 1) Right open distal radius fracture with irrigation debridement and ORIF - POD 4 2) Left intertrochanteric femur fracture status post intramedullary angelita fixation - POD 4 Maintain splint right upper extremity - nonweightbearing to wrist WBAT to left lower extremity PT for platform walker training. Daily dressing changes left lower extremity beginning POD 2 with Xeroform and Primapore over incision sites and bacitracin over anterior knee Lovenox SCDs Incentive spirometry Discharge planning to rehabilitation Follow-up with Dr. Reinoso or MARYELLEN in 2 weeks HARSHA ROSE PA-C Sep 11, 2016 11:15
[2016-09-11 12:00] VITALS: BP 165/78; PULSE 79; RESP 20; TEMP 98.5; O2SAT 96
[2016-09-11] MEDS: ENOXAPARIN SODIUM 30 MG/0.3 ML SYRINGE SQ SCH (12:21)
[2016-09-11 16:00] VITALS: BP 163/80; PULSE 65; RESP 18; TEMP 97.7; O2SAT 97
[2016-09-11] MEDS ORDERED: POTASSIUM CHLORIDE 20 MEQ CONTROLLED RELEASE TAB PO ONE (18:00)
[2016-09-11 20:00] VITALS: BP 185/92; PULSE 82; RESP 17; TEMP 98.8; O2SAT 97
[2016-09-12] VITALS: BP 125/60; PULSE 80; RESP 18; TEMP 96.7; O2SAT 98
[2016-09-12] MEDS: CHLORHEXIDINE GLUCONATE 2 % 1 PACK (2 CLOTHS) TOP SCH (00:01)
[2016-09-12] MEDS: INSULIN NovoLIN REGULAR SUPPLEMENTAL SCALE SQ SCH ×2 (05:39)
[2016-09-12 07:14] LABS: HEMATOCRIT 28.7 % (39.0-51.0); MEAN CELL VOLUME 86.3 FL (80.0-100.0); MEAN CORPUSCULAR HEMOGLOBIN 28.2 PG (27.0-34.0); MEAN CORPUSCULAR HGB CONC 32.7 % (32.0-36.0); PLATELET COUNT 245 TH/MM3 (150-450); RED BLOOD COUNT 3.33 MIL/MM3 (4.50-5.90); RED CELL DISTRIBUTION WIDTH 17.9 % (11.6-17.2); REVIEW FLAG FINAL; WHITE BLOOD COUNT 27.1 TH/MM3 (4.0-11.0)
[2016-09-12 07:45] LABS: BICARBONATE 24.9 MEQ/L (21.0-32.0); POTASSIUM 3.4 MEQ/L (3.5-5.1)
[2016-09-12 08:00] VITALS: BP 170/78; PULSE 68; RESP 17; TEMP 96.3; O2SAT 94
[2016-09-12] MEDS: FAMOTIDINE 20 MG TAB PO SCH (08:00)
[2016-09-12] MEDS: ATORVASTATIN 40 MG TAB PO SCH (08:00)
[2016-09-12] MEDS: CALCIUM CARBONATE 500 MG CHEWABLE TAB CHEW SCH (08:00)
[2016-09-12] MEDS: DOCUSATE SODIUM 50 MG/SENNA 8.6 MG TAB PO SCH (08:00)
[2016-09-12] MEDS: SODIUM CHLORIDE 0.9% FLUSH 5 ML FLUSH IVF SCH ×2 (08:01)
[2016-09-12] MEDS: FUROSEMIDE 20 MG TAB PO SCH (08:01)
[2016-09-12] MEDS: METOPROLOL TARTRATE 25 MG TAB PO SCH (08:01)
[2016-09-12] MEDS: CHOLECALCIFEROL (VIT D3) 5000 UNIT CAP PO SCH (08:01)
[2016-09-12] MEDS: CLOPIDOGREL 75 MG TAB PO SCH (08:01)
[2016-09-12] MEDS: ASPIRIN 81 MG CHEW TAB PO SCH (08:01)
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
[2016-09-12] MEDS ORDERED: POTASSIUM CHLORIDE 20 MEQ CONTROLLED RELEASE TAB PO ONE (10:00)
[2016-09-12] MEDS: ENOXAPARIN SODIUM 30 MG/0.3 ML SYRINGE SQ SCH (10:17)
[2016-09-12] MEDS ORDERED: BACTOIN EACH NARE (14:56)
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
== END 2016-09-12 12:16 | DRG 956 ==
LOC: NEPI 19:53 → EDBD 21:28 → NEDA 21:28 → N03B 23:23 → HCIS 09-08 15:09 → N07A 09-09 16:18
PROVIDERS: ADMIT Surgery; ATTEND Surgery
PROC: 02703EZ Dilation of Coronary Artery, One Artery with Two Intraluminal Devices, Percutaneous Approach (ICD-10-PCS; 2016-09-05)
PROC: 4A023N7 Measurement of Cardiac Sampling and Pressure, Left Heart, Percutaneous Approach (ICD-10-PCS; 2016-09-05)
PROC: B2111ZZ Fluoroscopy of Multiple Coronary Arteries using Low Osmolar Contrast (ICD-10-PCS; 2016-09-05)
PROC: B41F1ZZ Fluoroscopy of Right Lower Extremity Arteries using Low Osmolar Contrast (ICD-10-PCS; 2016-09-05)
PROC: 30233N1 Transfusion of Nonautologous Red Blood Cells into Peripheral Vein, Percutaneous Approach (ICD-10-PCS; 2016-09-06)
PROC: 0QS706Z Reposition Left Upper Femur with Intramedullary Internal Fixation Device, Open Approach (ICD-10-PCS; principal; 2016-09-06 09:04)
PROC: 0PSH04Z Reposition Right Radius with Internal Fixation Device, Open Approach (ICD-10-PCS; 2016-09-06 09:04)
DX: S72.142A Displaced intertrochanteric fracture of left femur, initial encounter for closed fracture (principal); S52.571B Other intraarticular fracture of lower end of right radius, initial encounter for open fracture type I or II; I21.19 ST elevation (STEMI) myocardial infarction involving other coronary artery of inferior wall; I25.810 Atherosclerosis of coronary artery bypass graft(s) without angina pectoris; E55.9 Vitamin D deficiency, unspecified; E11.9 Type 2 diabetes mellitus without complications; I10 Essential (primary) hypertension; E78.5 Hyperlipidemia, unspecified; K21.9 Gastro-esophageal reflux disease without esophagitis; N28.9 Disorder of kidney and ureter, unspecified; D72.829 Elevated white blood cell count, unspecified; E87.6 Hypokalemia; Z79.82 Long term (current) use of aspirin; Z87.891 Personal history of nicotine dependence; T50.8X5A Adverse effect of diagnostic agents, initial encounter; V47.6XXA Car passenger injured in collision with fixed or stationary object in traffic accident, initial encounter
CPT/HCPCS: 36430; 70450; 71010; 71260; 72125; 72170; 73100; 73130; 73502; 73551; 74177; 76000; 80048; 80061; 80076; 82306; 82435; 82550; 82552; 82565; 82947; 82948; 83735; 84132; 84155; 84295; 84484; 84520; 85002; 85007; 85014; 85018; 85027; 85610; 85730; 86850; 86900; 86901; 86920; 87641; 90471; 92941; 93005; 93306; 93454; 94150; 94640; 94667; 94668; 96374; 96375; 99291; C1713; C1725; C1760; C1769; C1876; C1887; C1893; C9113; G0269; G0390; J0360; J0690; J1170; J1580; J1644; J1650; J2060; J2250; J2270; J2370; J2405; J3010; J3475; J7030; J7120; P9016; Q9967